=== PATIENT | female | born 1930 | race Caucasian/White ===

== ENCOUNTER 2016-12-20 14:55 | Emergency (ER) | payer MEDICARE, BC ==
--- NOTE | 2016-12-20 15:36 | ER PHYSICIAN DOCUMENTATION ---
Physician Documentation [facility] Name:Jena Self Age:86 yrs Sex:Female :1930 Arrival Date:12/20/2016 Time:14:55 Bed6 Private MD:Shon Barahona ED Talat Otero Disposition: 12/20 15:18 Chart complete. tl1 Disposition: 12/20/16 15:35 Patient left the facility Before Triage. - Patient stated they are leaving due to [place] better and decided to leave. HPI: 15:17 This 86 yrs old Female presents to ER with complaints of Insect Bite. tl1 15:17 She just left the ED minutes ago, without waiting to be seen by me. She declined vital tl1 signs by the VINITA Ernandez. - Unable to obtain history due to: Pt left without being seen prior to finishing triage. Encouraged to stay and allow us to check her over and do VS, but states that she will return if she has any trouble. notified.. MDM: 15:06 Patient medically screened. tl1 Dispensed Medications: No medications were administered Signatures: Oma Nascimento RN RN rs Roberts, Leslie, RN RN lpr Leigh, Tom, MD MD tl1
--- NOTE | 2016-12-20 15:36 | ER NURSING DOCUMENTATION ---
Nurse's Notes [facility] Name:Jena Self Age:86 yrs Sex:Female :1930 Arrival Date:12/20/2016 Time:14:55 Bed6 Private MD:Shon Barahona Diagnosis: Presentation: 12/20 15:14 Presenting complaint: Patient states: Had a tick in her hair just prior to coming to ED, and she flushed it. . A couple days ago she removed a tick from her abdominal skin. Does not feel ill. Transition of care: patient was not received from another setting of care. 15:14 Acuity: WEN 5 rs 15:14 Method Of Arrival: Private Vehicle Triage Assessment: 15:27 Bite description: bite sustained to right mid abd. No edema, no erythema. by a tick. rs General: Appears in no apparent distress, comfortable, well developed, well nourished, well groomed, Behavior is cooperative, pleasant. Pain: Denies pain. Neuro: No deficits noted. Level of Consciousness is awake, alert. - Unable to obtain history due to: Pt left without being seen prior to finishing triage. Encouraged to stay and allow us to check her over and do VS, but states that she will return if she has any trouble. MD notified.. ED Course: 14:57 Patient arrived in ED. ama 14:57 Shon Barahona MD is Private Physician. ama 15:04 Oma Nascimento RN is Primary Nurse. rs 15:17 Talat Atwood MD is Attending Physician. tl1 15:27 Triage completed. rs Administered Medications: No medications were administered Outcome: 15:34 No charge visit due to Left without being seen or triage even being finished. . rs 15:35 Patient left the ED. rs 12/22 11:12 Eloped LWOT - Patient left after Triage and/or MSE Feels better Before physician. lpr Other patient was incorrectly charted as LWBS, but did see RN, therefore, patient is LWOT. 12:29 Patient left the ED. lpr Signatures: Oma Nascimento RN RN rs Ana Guardado RN RN lpr Ry Dobbs, Reg Reg Talat Merida MD MD tl1
== END 2016-12-22 12:30 | disposition home or self-care (01) ==
LOC: ER 14:55
DX: Z02.9 Encounter for administrative examinations, unspecified (principal)